=== PATIENT | male | born 1970 | race American Indian/Alaskan Native ===

== ENCOUNTER 2020-07-03 17:20 | Observation (INO) | payer BC ==
[2020-07-03 17:49] LABS: Basophils # (Auto) 0.1 K/mm3 (0.0-0.1); Eosinophils # (Auto) 0.1 K/mm3 (0.0-0.4); Eosinophils % (Auto) 1.2 % (0.0-4.3); Hematocrit 55.1 % (35.5-45.6); Hemoglobin 18.6 gm/dl (11.8-15.2); Lymphocytes % (Auto) 29.2 % (13.4-35.0); Mean Corpuscular HGB Conc 34 % (32-34); Mean Corpuscular Volume 93 fl (84-94); Monocytes # (Auto) 0.5 K/mm3 (0.0-0.8); Monocytes % (Auto) 7.1 % (0.0-7.3); Platelet Count 283 K/mm3 (140-440); Red Blood Count 5.92 M/mm3 (3.65-5.03); Red Cell Distribution Width 13.2 % (13.2-15.2)
--- NOTE | 2020-07-03 17:58 | XRay Report ---
CHEST 1 VIEW 07/03/2020 4:45 PM INDICATION / CLINICAL INFORMATION: Chest Pain. COMPARISON: None available. FINDINGS: SUPPORT DEVICES: None. HEART / MEDIASTINUM: No significant abnormality. LUNGS / PLEURA: No significant pulmonary or pleural abnormality. No pneumothorax. ADDITIONAL FINDINGS: No significant additional findings. IMPRESSION: 1. No acute abnormality of the chest. Signer Name: Vicente Man MD Signed: 07/03/2020 5:54 PM Workstation Name: [id number]
[2020-07-03 18:07] LABS: INR 0.97 (0.87-1.13)
[2020-07-03 18:08] LABS: Partial Thromboplastin Time 28.1 Sec. (24.2-36.6)
[2020-07-03 18:14] LABS: Alanine Aminotransferase 33 units/L (7-56); Albumin 4.2 g/dL (3.9-5); BUN/Creatinine Ratio 11; Blood Urea Nitrogen 12 mg/dL (9-20); Calcium 9.1 mg/dL (8.4-10.2); Hemolysis Index 222
--- NOTE | 2020-07-03 18:58 | Emergency Department Report ---
ED General Adult HPI - General Chief complaint: Chest Pain Stated complaint: CHEST PAIN Time Seen by Provider: 07/03/20 17:28 Source: patient Mode of arrival: Stretcher Limitations: No Limitations - History of Present Illness Initial comments: Patient presents to the emergency department with a chief complaint of substernal chest pain that started 1 hour prior to his arrival to the hospital. Patient denies any ration of his chest pain states that the nitroglycerin given via EMS to decrease his chest pain from a 10 to a 7. Patient denies hypertensi on, diabetes, hyperlipidemia. Patient endorses being a daily smoker. -: Sudden Location: chest Radiation: non-radiation Severity scale (0 -10): 7 Quality: dull Consistency: constant Improves with: none Worsens with: none Associated Symptoms: denies other symptoms Treatments Prior to Arrival: none - Related Data Previous Rx's Medication Instructions Recorded Last Taken Type Ibuprofen [Motrin] 800 mg PO Q8HR PRN #21 tablet 08/23/16 Unknown Rx Sulfamethoxazole/Trimethoprim 1 each PO BID #10 tablet 08/23/16 Unknown Rx [Bactrim DS TAB] Allergies Allergy/AdvReac Type Severity Reaction Status Date / Time No Known Allergies Allergy Unverified 08/23/16 16:54 ED Review of Systems ROS: Stated complaint: CHEST PAIN Other details as noted in HPI Comment: All other systems reviewed and negative Constitutional: denies: chills, fever Eyes: denies: eye pain, eye discharge, vision change ENT: denies: ear pain, throat pain Respiratory: denies: cough, shortness of breath, wheezing Cardiovascular: chest pain. denies: palpitations Endocrine: no symptoms reported Gastrointestinal: denies: abdominal pain, nausea, diarrhea Genitourinary: denies: urgency, dysuria Musculoskeletal: denies: back pain, joint swelling, arthralgia Skin: denies: rash, lesions Neurological: denies: headache, weakness, paresthesias Psychiatric: denies: anxiety, depression Hematological/Lymphatic: denies: easy bleeding, easy bruising ED Past Medical Hx - Past Medical History Previous Medical History?: Yes Hx Hypertension: Yes Hx Asthma: Yes - Surgical History Past Surgical History?: Yes - Social History Smoking Status: Current Every Day Smoker Substance Use Type: None - Medications Home Medications: Home Medications Medication Instructions Recorded Confirmed Last Taken Type Ibuprofen [Motrin] 800 mg PO Q8HR PRN #21 tablet 08/23/16 Unknown Rx Sulfamethoxazole/Trimethoprim 1 each PO BID #10 tablet 08/23/16 Unknown Rx [Bactrim DS TAB] ED Physical Exam - General Limitations: No Limitations General appearance: alert, in no apparent distress - Head Head exam: Present: atraumatic, normocephalic - Eye Eye exam: Present: normal appearance, PERRL, EOMI - ENT ENT exam: Present: mucous membranes moist - Neck Neck exam: Present: normal inspection - Respiratory Respiratory exam: Present: normal lung sounds bilaterally. Absent: respiratory distress - Cardiovascular Cardiovascular Exam: Present: regular rate, normal rhythm. Absent: systolic murmur, diastolic murmur, rubs, gallop - GI/Abdominal GI/Abdominal exam: Present: soft, normal bowel sounds. Absent: distended, tenderness - Rectal Rectal exam: Present: deferred - Extremities Exam Extremities exam: Present: normal inspection - Back Exam Back exam: Present: normal inspection - Neurological Exam Neurological exam: Present: alert, oriented X3, CN II-XII intact. Absent: motor sensory deficit - Psychiatric Psychiatric exam: Present: normal affect, normal mood - Skin Skin exam: Present: warm, dry, intact, normal color. Absent: rash ED Course Vital Signs 07/03/20 07/03/20 17:25 18:14 Temperature 98 F Pulse Rate 70 61 Respiratory 16 16 Rate Blood Pressure 121/81 Blood Pressure 138/84 [Right] O2 Sat by Pulse 100 Oximetry ED Medical Decision Making - Lab Data Result diagrams: 07/03/20 17:32 07/03/20 17:32 Lab Results 07/03/20 07/03/20 07/03/20 Range/Units 17:32 17:32 17:32 WBC 6.7 (4.5-11.0) K/mm3 RBC 5.92 H (3.65-5.03) M/mm3 Hgb 18.6 H (11.8-15.2) gm/dl Hct 55.1 H (35.5-45.6) % MCV 93 (84-94) fl MCH 32 (28-32) pg MCHC 34 (32-34) % RDW 13.2 (13.2-15.2) % Plt Count 283 (140-440) K/mm3 Lymph % (Auto) 29.2 (13.4-35.0) % Gibson % (Auto) 7.1 (0.0-7.3) % Eos % (Auto) 1.2 (0.0-4.3) % Baso % (Auto) 1.0 (0.0-1.8) % Lymph # (Auto) 2.0 (1.2-5.4) K/mm3 Gibson # (Auto) 0.5 (0.0-0.8) K/mm3 Eos # (Auto) 0.1 (0.0-0.4) K/mm3 Baso # (Auto) 0.1 (0.0-0.1) K/mm3 Seg Neutrophils % 61.5 (40.0-70.0) % Seg Neutrophils # 4.1 (1.8-7.7) K/mm3 PT 13.1 (12.2-14.9) Sec. INR 0.97 (0.87-1.13) APTT 28.1 (24.2-36.6) Sec. D-Dimer 135.00 (0-234) ng/mlDDU Sodium 141 (137-145) mmol/L Potassium 5.1 H (3.6-5.0) mmol/L Chloride 105.4 (98-107) mmol/L Carbon Dioxide 22 (22-30) mmol/L Anion Gap 19 mmol/L BUN 12 (9-20) mg/dL Creatinine 1.1 (0.8-1.3) mg/dL Estimated GFR > 60 ml/min BUN/Creatinine Ratio 11 % Glucose 108 H (75-100) mg/dL Calcium 9.1 (8.4-10.2) mg/dL Total Bilirubin 0.80 (0.1-1.2) mg/dL AST 38 (5-40) units/L ALT 33 (7-56) units/L Alkaline Phosphatase 84 (35-129) units/L Troponin T < 0.010 (0.00-0.029) ng/mL Total Protein 7.5 (6.3-8.2) g/dL Albumin 4.2 (3.9-5) g/dL Albumin/Globulin Ratio 1.3 % 10/19/20 Range/Units 18:22 WBC (4.5-11.0) K/mm3 RBC (3.65-5.03) M/mm3 Hgb (11.8-15.2) gm/dl Hct (35.5-45.6) % MCV (84-94) fl MCH (28-32) pg MCHC (32-34) % RDW (13.2-15.2) % Plt Count (140-440) K/mm3 Lymph % (Auto) (13.4-35.0) % Gibson % (Auto) (0.0-7.3) % Eos % (Auto) (0.0-4.3) % Baso % (Auto) (0.0-1.8) % Lymph # (Auto) (1.2-5.4) K/mm3 Gibson # (Auto) (0.0-0.8) K/mm3 Eos # (Auto) (0.0-0.4) K/mm3 Baso # (Auto) (0.0-0.1) K/mm3 Seg Neutrophils % (40.0-70.0) % Seg Neutrophils # (1.8-7.7) K/mm3 PT (12.2-14.9) Sec. INR (0.87-1.13) APTT (24.2-36.6) Sec. D-Dimer (0-234) ng/mlDDU Sodium (137-145) mmol/L Potassium (3.6-5.0) mmol/L Chloride (98-107) mmol/L Carbon Dioxide (22-30) mmol/L Anion Gap mmol/L BUN (9-20) mg/dL Creatinine (0.8-1.3) mg/dL Estimated GFR ml/min BUN/Creatinine Ratio % Glucose (75-100) mg/dL Calcium (8.4-10.2) mg/dL Total Bilirubin (0.1-1.2) mg/dL AST (5-40) units/L ALT (7-56) units/L Alkaline Phosphatase (35-129) units/L Troponin T 0.049 H D (0.00-0.029) ng/mL Total Protein (6.3-8.2) g/dL Albumin (3.9-5) g/dL Albumin/Globulin Ratio % - EKG Data -: EKG Interpreted by [place] EKG shows normal: sinus rhythm Rate: normal - EKG Data Interpretation: other (Early repolarization) - Radiology Data Radiology results: report reviewed - Medical Decision Making Discussed patient with the on-call emergency management program specialist Dr. Quevedo who agreed to see the patient in consultation IV heparin initiated Nitropaste initiated Discussed results with patient need for admission Critical care attestation.: If time is entered above; I have spent that time in minutes in the direct care of this critically ill patient, excluding procedure time. ED Disposition Clinical Impression: Elevated troponin, Chest pain Disposition: OP ADMIT IP TO THIS HOSP Is pt being admited?: Yes Does the pt Need Aspirin: Yes Condition: Fair Instructions: Chest Pain (ED) Heart Score - HEART Score History: Slightly suspicious EKG: Non-specific Age: 45-65 Risk factors: 1-2 risk factors Troponin: 1-3x normal limit HEART Score: 4
[2020-07-03] MEDS ORDERED: HEPARIN 10,000 UNITS/10 ML VIAL IV ONE (19:44)
--- NOTE | 2020-07-03 19:44 | History and Physical Report ---
History of Present Illness Chief complaint: Im having chest pain History of present illness: 49 YO Male with HTN, Nicotine Dependence, HLD, Asthma presents to ED for evaluation. Patient states that he experienced a sudden onset of pain in his chest that began 1 hour prior to presentation to the hospital. Patient states that the pain is 710/10, constant, nonradiating, dull, crushing in nature, worsened with exertion, relieved with rest. EMS was notified and upon arrival the patient was found to be in distress with nonspecific EKG changes. A code STEMI was called and the patient was transported to [facility] for further care and evaluation. Patient seen and evaluated in the emergency department. All lab and imaging studies reviewed. Patient found to have symptoms consistent with an ST elevation RI, as well as diastolic congestive heart failure. Patient initiated on chest pain protocol and admitted to telemetry due to increased risk of decompensation. Cardiology team consulted in ED. Patient initiated on heparin drip. Patient denies fever, chills, productive cough, skin rash, recent ill contacts, or known exposure to COVID-19. No prior admission for review. No medication listed at time of admission for reconciliation. Past History Past Medical History: hypertension, hyperlipidemia Past Surgical History: No surgical history, Other (Reviewed) Social history: , smoking. denies: alcohol abuse Family history: CAD, hypertension Medications and Allergies Allergies Allergy/AdvReac Type Severity Reaction Status Date / Time No Known Allergies Allergy Unverified 08/23/16 16:54 Home Medications Medication Instructions Recorded Confirmed Last Taken Type Ibuprofen [Motrin] 800 mg PO Q8HR PRN #21 tablet 08/23/16 Unknown Rx Sulfamethoxazole/Trimethoprim 1 each PO BID #10 tablet 08/23/16 Unknown Rx [Bactrim DS TAB] Review of Systems Constitutional: no weight loss, no weight gain, no chills, no sweats Ears, nose, mouth and throat: no ear pain, no ear discharge, no decreased hearing, no nose pain Cardiovascular: chest pain, decreased exercise tolerance, no orthopnea, no palpitations Respiratory: no cough, no cough with sputum, no excessive sputum, no hemoptysis Gastrointestinal: no abdominal pain, no nausea, no vomiting, no constipation Genitourinary Male: no flank pain, no discharge, no urinary frequency, no urinary hesitancy, no nocturia, no genital pain Rectal: no incontinence, no bleeding Musculoskeletal: no arm numbness/tingling, no low back pain, no shooting leg pain, no leg numbness/tingling, no redness of joints Integumentary: no rash, no redness, no sores, no wounds, no jaundice Neurological: no paralysis, no weakness, no numbness, no seizures Psychiatric: no anxiety, no change in sleep habits, no insomnia, no change in appetite, no change in libido Endocrine: no cold intolerance, no excessive thirst, no polydipsia, no excessive sweating, no low blood sugars Hematologic/Lymphatic: no easy bruising, no easy bleeding, no lymphadenopathy, no lymphedema Allergic/Immunologic: no allergic rhinitis, no persistent infections, no anaphylaxis, no angioedema Exam - Constitutional Vitals: Temp Pulse Resp BP Pulse Ox 98 F 61 16 138/84 100 07/03/20 17:25 07/03/20 18:14 07/03/20 18:14 07/03/20 18:14 07/03/20 17:25 General appearance: Present: mild distress - EENT Eyes: Present: PERRL ENT: hearing intact, clear oral mucosa - Neck Neck: Present: supple, normal ROM - Respiratory Respiratory effort: normal Respiratory: bilateral: CTA - Cardiovascular Heart Sounds: Present: S1 & S2. Absent: rub, click - Extremities Extremities: pulses symmetrical, No edema Peripheral Pulses: within normal limits - Abdominal General gastrointestinal: Present: soft, non-tender, non-distended, normal bowel sounds Male genitourinary: Present: normal - Integumentary Integumentary: Present: clear, warm, dry - Musculoskeletal Musculoskeletal: gait normal, strength equal bilaterally - Psychiatric Psychiatric: appropriate mood/affect, intact judgment & insight - Neurologic Neurologic: CNII-XII intact, moves all extremities HEART Score - HEART Score EKG: Non-specific Age: 45-65 Risk factors: No known risk factors Troponin: Troponin T 0.049 ng/mL (0.00-0.029) H D 07/03/20 18:22 Troponin: 1-3x normal limit Results - Labs CBC & Chem 7: 07/03/20 17:32 07/03/20 17:32 Labs: Abnormal lab results 07/03/20 07/03/20 07/03/20 Range/Units 17:32 17:32 18:22 RBC 5.92 H (3.65-5.03) M/mm3 Hgb 18.6 H (11.8-15.2) gm/dl Hct 55.1 H (35.5-45.6) % Potassium 5.1 H (3.6-5.0) mmol/L Glucose 108 H (75-100) mg/dL Troponin T 0.049 H D (0.00-0.029) ng/mL Assessment and Plan - Patient Problems (1) Non-ST elevation RI (NSTEMI) Status: Acute Plan to address problem: Cardiology team consulted in ED, serial cardiac enzymes, EKG, heparin drip. Further evaluation and testing as per cardiology team. (2) Diastolic congestive heart failure Status: Acute Qualifiers: Heart failure chronicity: acute Qualified Code(s): I50.31 - Acute diastolic (congestive) heart failure Plan to address problem: Strict I's/O, monitor urine output every shift, daily weight, afterload reduction, echocardiogram ordered and is pending at time of admission. (3) Hypertension Status: Acute Qualifiers: Hypertension type: essential hypertension Qualified Code(s): I10 - Es sential (primary) hypertension Plan to address problem: Monitor blood pressure every shift, continue medical management. (4) Hyperlipidemia Status: Acute Qualifiers: Hyperlipidemia type: mixed hyperlipidemia Qualified Code(s): E78.2 - Mixed hyperlipidemia Plan to address problem: Lipid panel, statin therapy as clinical indicated. (5) Nicotine dependence Status: Acute Qualifiers: Nicotine product type: cigarettes Substance use status: in withdrawal Qualified Code(s): F17.213 - Nicotine dependence, cigarettes, with withdrawal Plan to address problem: Smoking cessation counseling, supportive care, behavior change counseling, +15 minutes (6) DVT prophylaxis Status: Acute Plan to address problem: SCD to bilateral lower extremities while in bed, continue therapeutic anticoagulation
[2020-07-03] MEDS ORDERED: ALBUTEROL 2.5 MG/3 ML NEBU IH PRN (19:45)
[2020-07-03] MEDS ORDERED: NITROGLYCERIN 2% OINT 1 GM TP ONE ×3 (19:45→21:08)
[2020-07-03] MEDS ORDERED: ONDANSETRON 4 MG/2 ML INJ IV PRN (19:45)
[2020-07-03] MEDS ORDERED: ACETAMINOPHEN 325 MG TAB PO PRN (19:45)
[2020-07-03] MEDS ORDERED: MORPHINE 4 MG/1 ML INJ IV PRN (19:45)
[2020-07-03] MEDS ORDERED: MORPHINE 2 MG/1 ML INJ IV PRN ×2 (19:45→23:00)
[2020-07-03] MEDS ORDERED: ASPIRIN 81 MG TAB CHEW PO ONE (19:47)
[2020-07-03 20:08] LABS: Hematocrit 51.2 % (35.5-45.6); Hemoglobin 17.8 gm/dl (11.8-15.2)
[2020-07-03 20:19] LABS: INR 0.98 (0.87-1.13)
[2020-07-03 20:20] LABS: Partial Thromboplastin Time 30.2 Sec. (24.2-36.6)
[2020-07-03] MEDS ORDERED: ASPIRIN 325 MG TAB ONE (21:06)
[2020-07-03] MEDS ORDERED: HEPARIN 10,000 UNITS/10 ML VIAL ONE (21:07)
[2020-07-03] MEDS ORDERED: ASPIRIN 81 MG TAB CHEW ONE (21:26)
[2020-07-03] MEDS ORDERED: HEPARIN/ 0.45% NACL DRIP 25,000 UNIT/500 ML BAG ONE (22:22)
[2020-07-03] MEDS ORDERED: HEPARIN/ 0.45% NACL DRIP 25,000 UNIT/500 ML BAG IV SCH (23:00)
[2020-07-03 23:42] LABS: Bilirubin,Urine NEG (Negative); Blood,Urine NEG (Negative); Color,Urine Yellow (Yellow); Mucus,Urine 1+ /HPF; Protein,Urine <15 mg/dL mg/dL (Negative)
[2020-07-03 23:50] LABS: Amphetamine Screen,Urine PRESUMPTIVE NEGATIVE; Benzodiazepines Screen,Urine PRESUMPTIVE NEGATIVE; Cannabinoid Screen,Urine PRESUMPTIVE NEGATIVE; Cocaine Screen,Urine PRESUMPTIVE NEGATIVE; Methadone Screen,Urine PRESUMPTIVE NEGATIVE; Opiate Screen,Urine PRESUMPTIVE NEGATIVE
[2020-07-04 00:28] LABS: INR 1.04 (0.87-1.13)
[2020-07-04 01:02] LABS: Partial Thromboplastin Time 102.4 Sec. (24.2-36.6)
[2020-07-04 02:36] LABS: INR 0.97 (0.87-1.13)
[2020-07-04 05:36] LABS: BUN/Creatinine Ratio 15; Blood Urea Nitrogen 15 mg/dL (9-20); Calcium 8.5 mg/dL (8.4-10.2); Hemolysis Index 7
[2020-07-04] MEDS ORDERED: ASPIRIN EC 325 MG TAB PO ONE ×2 (10:10→11:00)
[2020-07-04] MEDS ORDERED: SODIUM CHLORIDE 0.9% 500 ML 500 ML ONE (10:10)
[2020-07-04] MEDS ORDERED: fentaNYL 100 MCG/2 ML INJ ONE (10:15)
[2020-07-04] MEDS ORDERED: HEPARIN 10,000 UNITS/10 ML VIAL ONE (10:15)
[2020-07-04] MEDS ORDERED: VERAPAMIL 5 MG/2 ML INJ ONE (10:15)
[2020-07-04] MEDS ORDERED: MIDAZOLAM 2 MG/2 ML INJ ONE (10:15)
[2020-07-04] MEDS ORDERED: NITROGLYCERIN SYRINGE 3 ML ONE (10:16)
[2020-07-04] MEDS ORDERED: LIDOCAINE (2%) 20 MG/1 ML VIAL 20 ML MDV INFILTRATI ONE (10:16)
--- NOTE | 2020-07-04 10:26 | Consultation ---
History of Present Illness Consult date: 07/04/20 Requesting physician: MAILE CISNEROS Consult reason: elevated troponin History of present illness: The pt is a 49 YO Male with a past medical history of borderline HTN, tobacco use, ETOH use. He is previously unknown to our practice. He presented with c/o chest pain which was present for approx 1 hour prior to presentation. Pt states that he was sitting in his car at [place] fast [place] when he noted the onset of the pain. He describes his pain as a crushing midsternal pressure. The pain lasted for several hours and is currently resolved. Prior to yesterday's episode of chest pain, pt reports he has been feeling well with no cardiac complaints. He was previously employed by [employer] and reports undergoing a stress test several years ago as part of his occupational health assessment. He believes the stress test was normal. Past History Past Medical History: hypertension, hyperlipidemia Past Surgical History: No surgical history, Other (Reviewed) Social history: , smoking. denies: alcohol abuse Family history: CAD, hypertension Medications and Allergies Allergies Allergy/AdvReac Type Severity Reaction Status Date / Time No Known Allergies Allergy Unverified 08/23/16 16:54 Active Meds: Active Medications Acetaminophen (Tylenol) 650 mg PO Q4H PRN PRN Reason: Pain MILD(1-3)/Fever >100.5/CABRERA Albuterol (Proventil) 2.5 mg IH Q4HRT PRN PRN Reason: Shortness Of Breath Aspirin (Ecotrin) 325 mg PO ONCE ONE Stop: 07/04/20 11:01 Last Admin: 07/04/20 10:22 Dose: 325 mg Documented by: Heparin Sodium/Sodium Chloride (Heparin/ 0.45% Nacl-25,000 Unit/500 Ml) 25,000 unit in 500 mls @ 20 mls/hr IV TITRATE NAGA; Protocol Last Titration: 07/04/20 07:22 Dose: 1,100 units/hr, 22 mls/hr Documented by: Sodium Chloride (Nacl 0.9% 500 Ml) 500 mls @ 50 mls/hr IV DIRECT NAGA Morphine Sulfate (Morphine) 1 mg IV Q6H PRN PRN Reason: Pain, Moderate (4-6) Morphine Sulfate (Morphine) 2 mg IV Q8H PRN PRN Reason: Pain , Severe (7-10) Ondansetron HCl (Zofran) 4 mg IV Q8H PRN PRN Reason: Nausea And Vomiting Sodium Chloride (Sodium Chloride Flush Syringe 10 Ml) 10 ml IV BID NAGA Last Admin: 07/03/20 22:49 Dose: 10 ml Documented by: Sodium Chloride (Sodium Chloride Flush Syringe 10 Ml) 10 ml IV PRN PRN PRN Reason: LINE FLUSH Review of Systems Constitutional: no weight loss, no weight gain, no fever, no chills, no sweats Ears, nose, mouth and throat: no ear pain, no nose pain, no sinus pressure, no sinus pain Cardiovascular: chest pain, high blood pressure (borderline), no orthopnea, no palpitations, no rapid/irregular heart beat, no edema, no syncope, no lightheadedness, no shortness of breath, no dyspnea on exertion, no decreased exercise tolerance Respiratory: no cough, no shortness of breath, no dyspnea on exertion, no congestion, no wheezing, no pain on inspiration Gastrointestinal: no abdominal pain, no nausea, no vomiting, no diarrhea, no constipation, no change in bowel habits Genitourinary Male: no dysuria, no hematuria, no flank pain, no discharge, no urinary frequency, no urinary hesitancy Musculoskeletal: no neck stiffness, no neck pain, no shooting arm pain, no arm numbness/tingling, no low back pain, no shooting leg pain, no leg numbness/tingling Integumentary: no rash, no pruritis, no redness, no sores, no wounds Neurological: no head injury, no paralysis, no weakness, no parathesias, no numbness, no tingling, no seizures, no syncope Psychiatric: no anxiety Endocrine: no cold intolerance, no heat intolerance Hematologic/Lymphatic: no easy bruising Allergic/Immunologic: no urticaria Physical Examination Vital Signs Temp Pulse Resp BP Pulse Ox 98 F 70 16 121/81 100 07/03/20 17:25 07/03/20 17:25 07/03/20 17:25 07/03/20 17:25 07/03/20 17:25 General appearance: no acute distress HEENT: Positive: PERRL, Normocephaly, Mucus Membranes Moist Neck: Positive: neck supple, trachea midline Cardiac: Positive: Reg Rate and Rhythm, S1/S2 Lungs: Positive: Decreased Breath Sounds Neuro: Positive: Grossly Intact Abdomen: Negative: Tender Skin: Negative: Rash Musculoskeletal: No Pain Extremities: Absent: edema Results 07/03/20 19:47 07/04/20 04:15 Cardiac Enzymes 07/03/20 Range/Units 17:32 AST 38 (5-40) units/L Coagulation 07/03/20 07/03/20 07/03/20 Range/Units 17:32 19:47 23:13 PT 13.1 13.2 13.8 (12.2-14.9) Sec. INR 0.97 0.98 1.04 (0.87-1.13) APTT 28.1 30.2 102.4 H* (24.2-36.6) Sec. 07/04/20 Range/Units 02:06 PT 13.1 (12.2-14.9) Sec. INR 0.97 (0.87-1.13) APTT 50.0 H (24.2-36.6) Sec. CBC 07/03/20 07/03/20 Range/Units 17:32 19:47 WBC 6.7 (4.5-11.0) K/mm3 RBC 5.92 H (3.65-5.03) M/mm3 Hgb 18.6 H 17.8 H (11.8-15.2) gm/dl Hct 55.1 H 51.2 H (35.5-45.6) % Plt Count 283 274 (140-440) K/mm3 Lymph # (Auto) 2.0 (1.2-5.4) K/mm3 Dane # (Auto) 0.5 (0.0-0.8) K/mm3 Eos # (Auto) 0.1 (0.0-0.4) K/mm3 Baso # (Auto) 0.1 (0.0-0.1) K/mm3 Comprehensive Metabolic Panel 07/03/20 07/04/20 Range/Units 17:32 04:15 Sodium 141 143 (137-145) mmol/L Potassium 5.1 H 3.5 L D (3.6-5.0) mmol/L Chloride 105.4 105.3 (98-107) mmol/L Carbon Dioxide 22 24 (22-30) mmol/L BUN 12 15 (9-20) mg/dL Creatinine 1.1 1.0 (0.8-1.3) mg/dL Glucose 108 H 93 (75-100) mg/dL Calcium 9.1 8.5 (8.4-10.2) mg/dL AST 38 (5-40) units/L ALT 33 (7-56) units/L Alkaline Phosphatase 84 (35-129) units/L Total Protein 7.5 (6.3-8.2) g/dL Albumin 4.2 (3.9-5) g/dL - Imaging and Cardiology Echo: pending Cardiac cath: pending EKG: report reviewed, image reviewed EKG interpretations - Telemetry EKG Rhythm: Sinus Rhythm - EKG Sinus rhythms and dysrhythmias: sinus rhythm Repolarization changes or abnormalities: early repolarization (normal variant) Assessment and Plan In setting of elevated Patsy, chest pain and multiple risk factors, coronary angiography recommended. Indications, potential risks and benefits of LHC reviewed with pt and he is agreeable to proceed with LHC today. Await findings. Initiate ASA 325, lipitor, lopressor. Obtain echo. Will follow. The patient has been seen in conjunction with Dr. Ha who agrees with the assessment and plan of care. - Patient Problems (1) Non-ST elevation [place] (NSTEMI) Current Visit: Yes Status: Acute (2) Hypertension Current Visit: Yes Status: Chronic Qualifiers: Hypertension type: essential hypertension Qualified Code(s): I10 - Essential (primary) hypertension (3) Nicotine dependence Current Visit: Yes Status: Chronic Qualifiers: Nicotine product type: cigarettes Substance use status: in withdrawal Qualified Code(s): F17.213 - Nicotine dependence, cigarettes, with withdrawal (4) Alcohol use Current Visit: Yes Status: Chronic
[2020-07-04] MEDS ORDERED: HEPARIN IR ONE (10:59)
[2020-07-04] MEDS ORDERED: SODIUM CHLORIDE 0.9% IR ONE (10:59)
[2020-07-04] MEDS ORDERED: SODIUM CHLORIDE 0.9% 500 ML 500 ML IV SCH ×2 (11:00)
[2020-07-04] MEDS ORDERED: CLOPIDOGREL 300 MG TAB ONE (11:11)
--- NOTE | 2020-07-04 11:19 | Progress Note ---
Assessment and Plan Assessment and plan: -- Non-ST elevation LA (NSTEMI) Status: Acute Plan to address problem: Status post left heart catheterization sluggish flow suggestive of endothelial dysfunction and patent coronaries and normal lv function Medical management, aspirin, beta-blockers, BIBI inhibitors, nitrates and statins Usually observe overnight and discharged tomorrow if stable --Hypertension Status: Acute Plan to address problem: Monitor blood pressure every shift, continue medical management. --Hyperlipidemia Status: Acute Plan to address problem: Lipid panel, statin therapy as clinical indicated. -- Nicotine dependence Status: Acute Plan to address problem: Smoking cessation counseling, supportive care, behavior change counseling, +15 minutes -- DVT prophylaxis Status: Acute Plan to address problem: SCD to bilateral lower extremities while in bed, continue therapeutic anticoagulation History Interval history: I have seen and examined the patient at the bedside Patient's chart and medications reviewed Patient underwent left heart catheterization, nonobstructive coronaries Medical management Patient feels slightly better no new complaints Vital signs noted Hospitalist Physical - Constitutional Vitals: Temp Pulse Resp BP Pulse Ox 98.7 F 67 20 136/86 93 07/04/20 07:19 07/04/20 07:19 07/04/20 07:19 07/04/20 07:19 07/04/20 07:19 General appearance: Present: no acute distress, well-nourished - EENT Eyes: Present: PERRL, EOM intact - Neck Neck: Present: supple, normal ROM - Respiratory Respiratory effort: normal Respiratory: bilateral: diminished, negative: rales, rhonchi, wheezing - Cardiovascular Rhythm: regular Heart Sounds: Present: S1 & S2 - Extremities Extremities: no ischemia, No edema - Abdominal General gastrointestinal: soft, non-tender, non-distended, normal bowel sounds - Integumentary Integumentary: Present: clear, warm - Psychiatric Psychiatric: appropriate mood/affect, cooperative - Neurologic Neurologic: moves all extremities HEART Score - HEART Score EKG: Non-specific Age: 45-65 Risk factors: No known risk factors Troponin: Troponin T 0.049 ng/mL (0.00-0.029) H D 07/03/20 18:22 Troponin: 1-3x normal limit Results - Labs CBC & Chem 7: 07/03/20 19:47 07/04/20 04:15 Labs: Laboratory Last Values WBC 6.7 K/mm3 (4.5-11.0) 07/03/20 17:32 RBC 5.92 M/mm3 (3.65-5.03) H 07/03/20 17:32 Hgb 17.8 gm/dl (11.8-15.2) H 07/03/20 19:47 Hct 51.2 % (35.5-45.6) H 07/03/20 19:47 MCV 93 fl (84-94) 07/03/20 17:32 MCH 32 pg (28-32) 07/03/20 17:32 MCHC 34 % (32-34) 07/03/20 17:32 RDW 13.2 % (13.2-15.2) 07/03/20 17:32 Plt Count 274 K/mm3 (140-440) 07/03/20 19:47 Lymph % (Auto) 29.2 % (13.4-35.0) 07/03/20 17:32 [place] % (Auto) 7.1 % (0.0-7.3) 07/03/20 17:32 Eos % (Auto) 1.2 % (0.0-4.3) 07/03/20 17:32 Baso % (Auto) 1.0 % (0.0-1.8) 07/03/20 17:32 Lymph # (Auto) 2.0 K/mm3 (1.2-5.4) 07/03/20 17:32 [place] # (Auto) 0.5 K/mm3 (0.0-0.8) 07/03/20 17:32 Eos # (Auto) 0.1 K/mm3 (0.0-0.4) 07/03/20 17:32 Baso # (Auto) 0.1 K/mm3 (0.0-0.1) 07/03/20 17:32 Seg Neutrophils % 61.5 % (40.0-70.0) 07/03/20 17:32 Seg Neutrophils # 4.1 K/mm3 (1.8-7.7) 07/03/20 17:32 PT 13.1 Sec. (12.2-14.9) 07/04/20 02:06 INR 0.97 (0.87-1.13) 07/04/20 02:06 APTT 50.0 Sec. (24.2-36.6) H 07/04/20 02:06 D-Dimer 135.00 ng/mlDDU (0-234) 07/03/20 17:32 Heparin Anti-Xa Level 0.19 U.I./ml (0.3-0.7) L 07/04/20 02:06 Sodium 143 mmol/L (137-145) 07/04/20 04:15 Potassium 3.5 mmol/L (3.6-5.0) L D 07/04/20 04:15 Chloride 105.3 mmol/L (98-107) 07/04/20 04:15 Carbon Dioxide 24 mmol/L (22-30) 07/04/20 04:15 Anion Gap 17 mmol/L 07/04/20 04:15 BUN 15 mg/dL (9-20) 07/04/20 04:15 Creatinine 1.0 mg/dL (0.8-1.3) 07/04/20 04:15 Estimated GFR > 60 ml/min 07/04/20 04:15 BUN/Creatinine Ratio 15 % 07/04/20 04:15 Glucose 93 mg/dL (75-100) 07/04/20 04:15 Calcium 8.5 mg/dL (8.4-10.2) 07/04/20 04:15 Total Bilirubin 0.80 mg/dL (0.1-1.2) 07/03/20 17:32 AST 38 units/L (5-40) 07/03/20 17:32 ALT 33 units/L (7-56) 07/03/20 17:32 Alkaline Phosphatase 84 units/L (35-129) 07/03/20 17:32 Troponin T 0.049 ng/mL (0.00-0.029) H D 07/03/20 18:22 Total Protein 7.5 g/dL (6.3-8.2) 07/03/20 17:32 Albumin 4.2 g/dL (3.9-5) 07/03/20 17:32 Albumin/Globulin Ratio 1.3 % 07/03/20 17:32 Urine Color Yellow (Yellow) 07/03/20 23:22 Urine Turbidity Clear (Clear) 07/03/20 23:22 Urine pH 5.0 (5.0-7.0) 07/03/20 23:22 Ur Specific [place] 1.023 (1.003-1.030) 07/03/20 23:22 Urine Protein <15 mg/dl mg/dL (Negative) 07/03/20 23:22 Urine Glucose (UA) Neg mg/dL (Negative) 07/03/20 23:22 Urine Ketones 20 mg/dL (Negative) 07/03/20 23:22 Urine Blood Neg (Negative) 07/03/20 23:22 Urine Nitrite Neg (Negative) 07/03/20 23:22 Urine Bilirubin Neg (Negative) 07/03/20 23:22 Urine Urobilinogen 2.0 mg/dL (<2.0) 07/03/20 23:22 Ur Leukocyte Esterase Neg (Negative) 07/03/20 23:22 Urine WBC (Auto) 2.0 /HPF (0.0-6.0) 07/03/20 23:22 Urine RBC (Auto) 1.0 /HPF (0.0-6.0) 07/03/20 23:22 U Epithel Cells (Auto) < 1.0 /HPF (0-13.0) 07/03/20 23:22 Urine Mucus 1+ /HPF 07/03/20 23:22 Urine Opiates Screen Presumptive negative 07/03/20 23:22 Urine Methadone Screen Presumptive negative 07/03/20 23:22 Ur Barbiturates Screen Presumptive negative 07/03/20 23:22 Ur Phencyclidine Scrn Presumptive negative 07/03/20 23:22 Ur Amphetamines Screen Presumptive negative 07/03/20 23:22 U Benzodiazepines Scrn Presumptive negative 07/03/20 23:22 Urine Cocaine Screen Presumptive negative 07/03/20 23:22 U Marijuana (THC) Screen Presumptive negative 07/03/20 23:22 Drugs of Abuse Note Disclamer 07/03/20 23:22 [place]/IV: Voiding Method Toilet IV Catheter Type [Left INT / Saline Lock Antecubital] IV Catheter Type [Right INT / Saline Lock Antecubital] Active Medications - Current Medications Current Medications: Generic Name Dose Route Start Last Admin Trade Name Freq PRN Reason Stop Dose Admin Acetaminophen 650 mg 07/03/20 19:45 Tylenol PO Q4H PRN Pain MILD(1-3)/Fever >100.5/CABRERA Albuterol 2.5 mg 07/03/20 19:45 Proventil IH Q4HRT PRN Shortness Of Breath Aspirin 325 mg 07/05/20 10:00 Aspirin PO QDAY [facility] Atorvastatin Calcium 40 mg 07/04/20 22:00 Lipitor PO QHS [facility] Sodium Chloride 500 mls @ 50 mls/hr 07/04/20 11:00 07/04/20 10:59 Nacl 0.9% 500 Ml IV 07/04/20 20:59 100 mls DIRECT NAGA Administration Metoprolol Tartrate 25 mg 07/04/20 22:00 Metoprolol PO BID [facility] Morphine Sulfate 1 mg 07/03/20 19:45 Morphine IV Q6H PRN Pain, Moderate (4-6) Morphine Sulfate 2 mg 07/03/20 23:00 Morphine IV Q8H PRN Pain , Severe (7-10) Ondansetron HCl 4 mg 07/03/20 19:45 Zofran IV Q8H PRN Nausea And Vomiting Sodium Chloride 10 ml 07/03/20 22:00 07/03/20 22:49 Sodium Chloride Flush Syringe 10 Ml IV 10 ml BID NAGA Administration Sodium Chloride 10 ml 07/03/20 19:45 Sodium Chloride Flush Syringe 10 Ml IV PRN PRN LINE FLUSH
[2020-07-04] MEDS ORDERED: traMADol 50 MG TAB PO PRN (11:23)
[2020-07-04] MEDS ORDERED: HYDROcodone/ACETAMINOPHEN 5-325 MG TAB PO PRN (11:23)
--- NOTE | 2020-07-04 11:58 | Cardiac Catherization Report ---
[facility] HEART CATHETERIZATION CLINICAL INFORMATION: This is a 49-year-old -[place] gentleman who is a smoker, presents with chest pain with abnormal troponin suggestive of non-ST elevation myocardial infarction type 1, on heparin and is here for left heart catheterization. The patient was done with moderate sedation started at 10:51 and finished at 11:09, which is 18 minutes of moderate sedation. Procedure was done via the right radial artery, sterile technique, local anesthesia, 6-Argentine radial sheath inserted. PROCEDURE FINDINGS: Left system engaged with JL3.5 catheter, left main is large and patent, bifurcates into large LAD, proximal has a smooth 10%-20% lesion. Rest of vessels a wraparound LAD is large and patent, but there is sluggish flow suggestive of endothelial dysfunction. Diagonal is medium caliber and patent. Circumflex is a large dominant vessel, patent. OM1 and OM2 medium caliber vessels with sluggish flow. LPDA a small to medium caliber vessel, patent. RCA engaged with JR4, is a small nondominant vessel, patent. LV gram done in TURKMEN and REYNA view shows normal LV function, LVEDP 19 mmHg, LV is 133. Aortic is 131/81. No gradient across the aortic valve on pullback. 5-Argentine catheters all taken over guidewire, 6-Argentine radial sheath was discontinued. Radial band applied. No hematoma, no bleeding. SUMMARY: Left main patent, LAD proximal 10%-20% large vessel, patent wrapped around LAD. Circumflex is a large dominant vessel, patent. OM1, OM2 patent. LPDA patent. Small RCA patent. Sluggish flow suggestive of endothelial dysfunction as the cause of patient's NONSTEMI. JOB# [id number] KRISTY/EVE
[2020-07-04 16:16] LABS: Chol/HDL Ratio 1.6 %
[2020-07-04] MEDS: CETIRIZINE 10 MG TAB PO SCH (19:08)
[2020-07-04] MEDS: METOPROLOL TARTRATE 25 MG TAB PO SCH (21:43)
[2020-07-05 04:11] LABS: Hematocrit 47.2 % (35.5-45.6)
[2020-07-05 04:28] LABS: BUN/Creatinine Ratio 10; Blood Urea Nitrogen 11 mg/dL (9-20); Calcium 8.3 mg/dL (8.4-10.2); Hemolysis Index 14
--- NOTE | 2020-07-05 08:34 | Discharge Summary ---
Providers - Providers Date of Admission: 07/03/20 19:45 Date of discharge: 07/05/20 Attending physician: BENJIE QUIÑONEZ 07/03/20 19:44 Consult to Cardiology [CONS] Routine Consulting Provider: SLOAN WOODSON Reason For Exam: NSTEMI 07/04/20 11:23 Consult to Cardiac Rehabilitation [CONS] Routine Reason For Exam: Cardiac Rehab Evaluation Primary care physician: YVAN CAT Hospitalization Reason for admission: Chest pain Condition: Stable Pertinent studies: Echo; EF 55 to 60% CXR: No acute abnormality noted Procedures: Cardiac cath ;endothelial dysfunction and patent coronaries and normal lv function. Hospital course: 49-year-old male patient with significant past medical history of hypertension dyslipidemia bronchial asthma ongoing tobacco use was admitted through emergency room with chest pain. Initial work-up is consistent with non-ST elevation DC with positive troponins and no ST-T changes Patient was admitted appropriately managed subsequently evaluated by cardiology as patient had multiple risk factors Cardiology optimize the medications and subsequently patient underwent left heart catheterization which revealed endothelial dysfunction and patent coronaries with normal LV function, cardiology recommended medical management. Today patient is comfortable no new complaints vital signs stable, denies chest pain or shortness of breath Physical examination prior to discharge is unremarkable Patient counseled smoking cessation advised nicotine patch as needed Patient verbalized understanding Discharge diagnosis -- Non-ST elevation DC (NSTEMI) Status: Acute Negative left heart catheterization , normal EF --Hypertension Status: Acute Well controlled. --Hyperlipidemia Status: Acute, on statin --Ongoing tobacco use Status: Acute Smoking cessation counseling, Nicotine patch as needed Patient is stable at discharge Disposition: [facility]-01 TO HOME OR SELFCARE Time spent for discharge: 35 min Core Measure Documentation - Palliative Care Palliative Care/ Comfort Measures: Not Applicable - Core Measures Any of the following diagnoses?: none Exam - Constitutional Vitals: Temp Pulse Resp BP Pulse Ox 97.0 F L 63 20 122/81 98 07/05/20 08:01 07/05/20 08:01 07/05/20 08:01 07/05/20 08:01 07/05/20 08:01 General appearance: Present: no acute distress, well-nourished - EENT Eyes: Present: PERRL, EOM intact - Neck Neck: Present: supple, normal ROM - Respiratory Respiratory effort: normal Respiratory: negative: rales, rhonchi, wheezing - Cardiovascular Rhythm: regular Heart Sounds: Present: S1 & S2 - Extremities Extremities: no ischemia, No edema - Abdominal General gastrointestinal: Present: soft, non-tender, non-distended, normal bowel sounds - Integumentary Integumentary: Present: clear, warm - Musculoskeletal Musculoskeletal: strength equal bilaterally - Psychiatric Psychiatric: appropriate mood/affect, cooperative - Neurologic Neurologic: CNII-XII intact, moves all extremities Plan Activity: advance as tolerated Diet: other (Cardiac diet) Special Instructions: smoking cessation Additional Instructions: Patient strongly advised to comply with medications, diet and follow-up visits per schedule. If you have worsening symptoms contact MD or go to emergency room as needed. Strongly advised smoking cessation, nicotine patch as needed Follow up with: YVAN CAT MD [Primary Care Provider] - 7 Days JULY DINERO MD [Staff Physician] - 7 Days Forms: Work/School Release Form Prescriptions: Aspirin [Aspirin BABY CHEW TAB] 81 mg PO QDAY #30 tab.chew ISOSORBIDE MONOnitrate [Imdur ER] 30 mg PO QDAY #30 tablet AtorvaSTATin [Lipitor] 40 mg PO QHS #30 tablet Metoprolol [Lopressor TAB] 25 mg PO BID #60 tablet Clopidogrel [Plavix] 75 mg PO QDAY #30 tablet traMADoL [Ultram 50 MG tab] 50 mg PO Q6H PRN #20 tablet PRN Reason: Pain, Mild (1-3)
[2020-07-05] MEDS ORDERED: ASPIRIN 81 MG TAB CHEW PO SCH (10:00)
[2020-07-05] MEDS ORDERED: CLOPIDOGREL 75 MG TAB PO SCH (10:00)
[2020-07-05] MEDS ORDERED: ASPIRIN 325 MG TAB PO SCH (10:00)
[2020-07-05] MEDS: METOPROLOL TARTRATE 25 MG TAB PO SCH (10:50)
[2020-07-05] MEDS: CETIRIZINE 10 MG TAB PO SCH (10:50)
--- NOTE | 2020-07-05 11:06 | Progress Note ---
Assessment and Plan s/p LHC yesterday which showed sluggish flow suggestive of endothelial dysfunction and patent coronaries and normal lv function. tte reviewed - EF 55-60%, no significant abnormalities. Currently stable cardiac status. Pt may discharge from cardiology standpoint on present cardiac regimen. Follow up in our [place] office with Dr. Ha on 07/10/2020 @ 1:00PM. The patient has been seen in conjunction with Dr. Ha who agrees with the assessment and plan of care. - Patient Problems (1) Non-ST elevation NM (NSTEMI) Current Visit: Yes Status: Acute Plan to address problem: type 1 (2) Hypertension Current Visit: Yes Status: Chronic Qualifiers: Hypertension type: essential hypertension Qualified Code(s): I10 - Essential (primary) hypertension (3) Nicotine dependence Current Visit: Yes Status: Chronic Qualifiers: Nicotine product type: cigarettes Substance use status: in withdrawal Qualified Code(s): F17.213 - Nicotine dependence, cigarettes, with withdrawal (4) Alcohol use Current Visit: Yes Status: Chronic Subjective Date of service: 07/05/20 Principal diagnosis: chest pain Interval history: no current complaints. in SR HR 60s on tele. Objective Last Vital Signs Temp 97.0 F L 07/05/20 08:01 Pulse 68 07/05/20 10:51 Resp 20 07/05/20 08:01 BP 122/81 07/05/20 10:51 Pulse Ox 98 07/05/20 08:01 - Physical Examination General: No Apparent Distress HEENT: Positive: PERRL, Normocephaly, Mucus Membranes Moist Neck: Positive: neck supple, trachea midline Cardiac: Positive: Reg Rate and Rhythm, S1/S2 Lungs: Positive: Decreased Breath Sounds Neuro: Positive: Grossly Intact Abdomen: Negative: Tender Skin: Negative: Rash Incision: Cardiac Cath Site (right radial, c/d/i) Musculoskeletal: No Pain Extremities: Absent: edema - Labs and Meds Lipids 07/03/20 Range/Units 18:22 Triglycerides 83 (2-149) mg/dL Cholesterol 127 (50-199) mg/dL HDL Cholesterol 79 H (40-59) mg/dL Cholesterol/HDL Ratio 1.60 % CBC 07/05/20 Range/Units 03:33 Hgb 16.0 H (11.8-15.2) gm/dl Hct 47.2 H (35.5-45.6) % Plt Count 255 (140-440) K/mm3 Comprehensive Metabolic Panel 07/05/20 Range/Units 03:33 Sodium 139 (137-145) mmol/L Potassium 3.8 (3.6-5.0) mmol/L Chloride 103.3 (98-107) mmol/L Carbon Dioxide 26 (22-30) mmol/L BUN 11 (9-20) mg/dL Creatinine 1.1 (0.8-1.3) mg/dL Glucose 106 H (75-100) mg/dL Calcium 8.3 L (8.4-10.2) mg/dL - Imaging and Cardiology EKG: report reviewed, image reviewed Echo: report reviewed Cardiac cath: report reviewed - Telemetry EKG Rhythm: Sinus Rhythm - EKG Sinus rhythms and dysrhythmias: sinus rhythm Repolarization changes or abnormalities: early repolarization (normal variant)
[2020-07-05 14:22] VITALS: BP 124/79
== END 2020-07-05 15:37 | disposition home or self-care (01) ==
LOC: ED 17:20 → UNDOADMOB 19:45 → 4A 19:45 → INTOOBSV 19:45 → 4A 21:26
PROVIDERS: ADMIT Internal Medicine; ATTEND Internal Medicine
DX: I21.4 Non-ST elevation (NSTEMI) myocardial infarction (principal); I11.0 Hypertensive heart disease with heart failure; I50.31 Acute diastolic (congestive) heart failure; E78.2 Mixed hyperlipidemia; J45.909 Unspecified asthma, uncomplicated; F17.213 Nicotine dependence, cigarettes, with withdrawal; Z71.6 Tobacco abuse counseling; Z79.899 Other long term (current) drug therapy
CPT/HCPCS: 36415; 71045; 80048; 80053; 80061; 80307; 81001; 84484; 85014; 85018; 85025; 85049; 85379; 85520; 85610; 85730; 93005; 93306; 93458; 96365; 96366; 96376; 99285; 99406; A9270; C1894; G0378; J1644; J2250; J3010; J7030; J7040; 90471; Q9967